=== PATIENT | female | born 1950 | race Caucasian/White ===

== ENCOUNTER 2017-10-24 18:48 | Emergency (ER) | payer MEDICARE, MEDICAID ==
[~2017-10-24] VITALS: Ht 175.3 cm; Wt 60.4 kg
[~2017-10-24 18:48] MED LIST: ALPR-624 PO; CIPR-230 PO; ESOM40CA PO; ESTR1TAB19; LOPE2CAP PO; METO10TA3 PO; METR500T4 PO; ONDA4TAB12 PO; SUCR1ORA2 PO; TRAM50TA2 PO; ZOF4T PO; ZOLP5TAB8 PO
[2017-10-24 19:38] LABS: HEMATOCRIT 34.9 % (35.0-45.0); HEMOGLOBIN 11.5 g/dl (12.0-16.0); MEAN CORPUSCULAR HEMOGLOBIN 22.8 PG (27.0-31.0); MEAN CORPUSCULAR HGB CONC 32.9 % (33.0-36.5); MEAN CORPUSCULAR VOLUME 69.2 FL (78-98); MEAN PLATELET VOLUME 8.5 FL (7.4-10.4); PLATELET COUNT 293 X10'3 (140-440); RED BLOOD COUNT 5.05 X10'6 (4.20-5.60); RED CELL DISTRIBUTION WIDTH 16.2 % (11.5-14.5); WHITE BLOOD COUNT 8.5 X10'3 (4.5-11.0)
[2017-10-24 19:50] LABS: PROTHROMBIN TIME 10.2 SECONDS (9.0-12.0)
[2017-10-24 19:57] LABS: ALANINE AMINOTRANSFERASE 18 U/L (12-78); ALBUMIN 3.7 G/DL (3.4-5.0); ALKALINE PHOSPHATASE 90 IU/L (46-116); ANION GAP 11 (8-16); ASPARTATE AMINO TRANSFERASE 18 U/L (10-37); BILIRUBIN,TOTAL 0.5 MG/DL (0.1-1.0); BLOOD UREA NITROGEN 6 MG/DL (7-18); BUN/CREATININE RATIO 6.4 (6.6-38.0); CALCIUM 8.5 MG/DL (8.5-10.1); CHLORIDE 101 MMOL/L (99-107); CREATININE 0.94 MG/DL (0.40-0.90); GLUCOSE 104 MG/DL (70-104); LIPASE 83 U/L (73-393); POTASSIUM 3.4 MMOL/L (3.5-5.1); SODIUM 138 MMOL/L (135-145); TOTAL CARBON DIOXIDE 25.8 MMOL/L (24-32); TOTAL PROTEIN 7.3 G/DL (6.4-8.2); eGFR 59 ML/MIN
[2017-10-24 20:05] LABS: ANISOCYTOSIS 1+; PLATELET ESTIMATE NORMAL; POIKILOCYTOSIS 2+; TOTAL CELLS COUNTED 100
[2017-10-24 20:06] LABS: ELLIPTOCYTES FEW; TARGET CELLS 1+; TEAR DROP CELLS FEW
[2017-10-24 20:10] LABS: CLARITY,URINE CLEAR (Clear); COLOR,URINE YELLOW (Yellow); GLUCOSE, URINE NEGATIVE (Neg); KETONES,URINE NEGATIVE (Neg); LEUKOCYTE ESTERASE ,URINE NEGATIVE (Neg); NITRITES, URINE NEGATIVE (Neg); OCCULT BLOOD,URINE NEGATIVE (Neg); PROTEIN,URINE NEGATIVE (Neg); UROBILINOGEN,URINE 0.2 E.U/dL (0.2-1.0)
[2017-10-24 20:15] LABS: UA COLLECTION TYPE CLN CATCH MIDSTREAM
[2017-10-24] MEDS ORDERED: LIDOcaine Viscous 15ml cup PO ONE (21:40)
[2017-10-24] MEDS ORDERED: mag hydrox/Alum hydrox/simeth 30ml oral suspension PO ONE (21:40)
[2017-10-24] MEDS ORDERED: famotidine 20mg tablet PO ONE (22:30)
[2017-10-24] MEDS ORDERED: RANI150T8 PO (22:50)
[2017-10-24] MEDS ORDERED: sucralfate 1gm/10ml UD suspension PO ONE (22:50)
[2017-10-24 23:23] VITALS: BP 129/72
== END 2017-10-24 23:26 | disposition home or self-care (01) ==
LOC: ER 18:49
DX: K29.70 Gastritis, unspecified, without bleeding (principal); K57.90 Diverticulosis of intestine, part unspecified, without perforation or abscess without bleeding; K21.9 Gastro-esophageal reflux disease without esophagitis; Z88.5 Allergy status to narcotic agent; Z88.1 Allergy status to other antibiotic agents
CPT/HCPCS: 36415; 74176; 80053; 81003; 83605; 83690; 84484; 85025; 85610; 99285

== ENCOUNTER 2019-02-03 18:26 | Emergency (ER) | payer MEDICARE, MEDICAID ==
[~2019-02-03] VITALS: Ht 175.3 cm; Wt 57.7 kg
[~2019-02-03 18:26] MED LIST changes: -ESTR1TAB19; +ESTR1TAB19 PO; +METR-159 PO; -METR500T4 PO; +RANI150T8 PO
[2019-02-03 19:08] LABS: BASOPHILS % (AUTO) 0.2 % (0-1); EOSINOPHILS % (AUTO) 0.3 % (0-6); HEMATOCRIT 34.4 % (35.0-45.0); HEMOGLOBIN 11.2 g/dl (12.0-16.0); LYMPHOCYTES # (AUTO) 2.6 X10'3 (1.1-4.8); LYMPHOCYTES % (AUTO) 18.4 % (21-51); MEAN CORPUSCULAR HEMOGLOBIN 22.3 PG (27.0-31.0); MEAN CORPUSCULAR HGB CONC 32.7 g/dL (33.0-36.5); MEAN CORPUSCULAR VOLUME 68.1 FL (78-98); MEAN PLATELET VOLUME 9.3 FL (7.4-10.4); MONOCYTES # (AUTO) 0.5 X10'3 (0-0.9); MONOCYTES % (AUTO) 3.6 % (2-12); NEUTROPHILS % (AUTO) 77.5 % (42-75); PLATELET COUNT 332 X10'3 (140-440); RED BLOOD COUNT 5.05 X10'6 (4.20-5.60); RED CELL DISTRIBUTION WIDTH 14.9 % (11.5-14.5); WHITE BLOOD COUNT 14.3 X10'3 (4.5-11.0)
[2019-02-03 19:16] LABS: ALANINE AMINOTRANSFERASE 18 U/L (12-78); ALBUMIN 3.7 G/DL (3.4-5.0); ALBUMIN/GLOBULIN RATIO 1.1 (1.1-1.5); ALKALINE PHOSPHATASE 102 IU/L (46-116); ANION GAP 11 (8-16); ASPARTATE AMINO TRANSFERASE 13 U/L (10-37); BILIRUBIN,TOTAL 0.9 MG/DL (0.1-1.0); BLOOD UREA NITROGEN 5 MG/DL (7-18); BUN/CREATININE RATIO 5.7 (6.6-38.0); CALCIUM 8.4 MG/DL (8.5-10.1); CHLORIDE 97 MMOL/L (99-107); CREATININE 0.88 MG/DL (0.40-0.90); GLUCOSE 99 MG/DL (70-104); POTASSIUM 3.1 MMOL/L (3.5-5.1); SODIUM 133 MMOL/L (135-145); TOTAL CARBON DIOXIDE 25.4 MMOL/L (24-32); TOTAL PROTEIN 7.1 G/DL (6.4-8.2); eGFR 64 ML/MIN
[2019-02-03 19:20] LABS: CLARITY,URINE CLEAR (Clear); GLUCOSE, URINE NEGATIVE (Neg); KETONES,URINE TRACE mg/dl (Neg); LEUKOCYTE ESTERASE ,URINE NEGATIVE (Neg); NITRITES, URINE POSITIVE (Neg); OCCULT BLOOD,URINE NEGATIVE (Neg); PROTEIN,URINE TRACE mg/dl (Neg)
[2019-02-03 19:24] LABS: COLOR,URINE DARK YELLOW (Yellow); UA COLLECTION TYPE CLN CATCH MIDSTREAM
[2019-02-03 19:27] LABS: RBC,URINE NONE SEEN /HPF (0-2); WBC,URINE 0-4 /HPF (0-4)
[2019-02-03 19:28] LABS: BACTERIA,URINE FEW /HPF (Neg); MUCUS STRANDS NONE SEEN /LPF (Neg); SQUAMOUS EPITHELIAL CELL,UR FEW /LPF (FEW)
[2019-02-03 20:32] LABS: MICROCYTOSIS 2+; PLATELET ESTIMATE NORMAL
[2019-02-03 20:33] LABS: ELLIPTOCYTES 1+; LIPASE 57 U/L (73-393); TARGET CELLS FEW
[2019-02-03] MEDS ORDERED: sucralfate 1gm/10ml UD suspension PO STA (20:47)
[2019-02-03] MEDS ORDERED: LIDOcaine Viscous 15ml cup PO ONE (20:50)
[2019-02-03] MEDS ORDERED: mag hydrox/Alum hydrox/simeth 30ml oral suspension PO ONE (20:50)
[2019-02-03] MEDS ORDERED: SUCR1TAB34 PO (21:34)
[2019-02-03] MEDS ORDERED: CEPH500C5 PO (21:35)
[2019-02-03 21:46] VITALS: BP 180/82
== END 2019-02-03 21:51 | disposition home or self-care (01) ==
LOC: ER 18:28
DX: R10.13 Epigastric pain (principal); K21.9 Gastro-esophageal reflux disease without esophagitis; Z90.49 Acquired absence of other specified parts of digestive tract; Z90.710 Acquired absence of both cervix and uterus; Z88.2 Allergy status to sulfonamides; Z88.1 Allergy status to other antibiotic agents; Z88.5 Allergy status to narcotic agent; Z79.899 Other long term (current) drug therapy
CPT/HCPCS: 36415; 80053; 81001; 83690; 85025; 85610; 87088; 99283; 99284

== ENCOUNTER 2019-03-16 11:26 | Emergency (ER) | payer MEDICARE, MEDICAID ==
[~2019-03-16] VITALS: Ht 175.3 cm; Wt 55.5 kg
[~2019-03-16 11:26] MED LIST changes: +CEPH500C5 PO; +SUCR1TAB34 PO
[2019-03-16 11:49] LABS: CLARITY,URINE CLOUDY (Clear); COLOR,URINE YELLOW (Yellow); GLUCOSE, URINE NEGATIVE (Neg); KETONES,URINE TRACE mg/dl (Neg); LEUKOCYTE ESTERASE ,URINE NEGATIVE (Neg); NITRITES, URINE NEGATIVE (Neg); OCCULT BLOOD,URINE NEGATIVE (Neg); PH,URINE 6.5 (4.8-8.0); PROTEIN,URINE 100 mg/dl (Neg); UROBILINOGEN,URINE 0.2 E.U/dL (0.2-1.0)
[2019-03-16 11:52] LABS: UA COLLECTION TYPE CLN CATCH MIDSTREAM
[2019-03-16 11:57] LABS: SQUAMOUS EPITHELIAL CELL,UR MANY /LPF (FEW)
[2019-03-16 11:58] LABS: MUCUS STRANDS MODERATE /LPF (Neg)
[2019-03-16 12:00] LABS: BACTERIA,URINE 1+ /HPF (Neg); RBC,URINE 0-2 /HPF (0-2); WBC,URINE 0-4 /HPF (0-4)
--- NOTE | 2019-03-16 12:01 | NUR ---
patient here because she called her GI doc DR SHEA and c/o abdominal pain and his office told her to go to the er patient had CT scan oral/iv contrast at [facility] yesterday pain location is epigastric: "sharp/burning 9.5/10", not worse with deep breath
[2019-03-16 12:02] LABS: HEMOGLOBIN 11.7 g/dl (12.0-16.0)
[2019-03-16 12:05] LABS: HEMATOCRIT 36.7 % (35.0-45.0); MEAN CORPUSCULAR HEMOGLOBIN 22.1 PG (27.0-31.0); MEAN CORPUSCULAR HGB CONC 31.8 g/dL (33.0-36.5); MEAN CORPUSCULAR VOLUME 69.5 FL (78-98); MEAN PLATELET VOLUME 8.8 FL (7.4-10.4); PLATELET COUNT 408 X10'3 (140-440); RED BLOOD COUNT 5.27 X10'6 (4.20-5.60); RED CELL DISTRIBUTION WIDTH 15.9 % (11.5-14.5); WHITE BLOOD COUNT 9.9 X10'3 (4.5-11.0)
--- NOTE | 2019-03-16 12:06 | NUR ---
patient saw raina mehta on Wednesday for abdominal pain and was started on Cefdinir 300mg daily on 03/14/19 for suspected abdominal infection and ct scan ordered patient called dr lutz's office today c/o abdominal pain and they told her to come in: pt takes the folllowing daily: Nexium 40 mg bid Estradiol 1 mg daily Dicyclonie 10 mg tid
--- NOTE | 2019-03-16 12:11 | NUR ---
note : patient did not take the Carafate prescribed here in January 2019 because "I thougth it was Sulfa"
[2019-03-16 12:14] LABS: ALANINE AMINOTRANSFERASE 21 U/L (12-78); ALBUMIN 3.9 G/DL (3.4-5.0); ALBUMIN/GLOBULIN RATIO 1.1 (1.1-1.5); ALKALINE PHOSPHATASE 95 IU/L (46-116); ANION GAP 11 (8-16); ASPARTATE AMINO TRANSFERASE 10 U/L (10-37); BILIRUBIN,TOTAL 0.4 MG/DL (0.1-1.0); BLOOD UREA NITROGEN 9 MG/DL (7-18); BUN/CREATININE RATIO 10.6 (6.6-38.0); CALCIUM 9.1 MG/DL (8.5-10.1); CHLORIDE 104 MMOL/L (99-107); CREATININE 0.85 MG/DL (0.40-0.90); GLUCOSE 111 MG/DL (70-104); LIPASE 115 U/L (73-393); POTASSIUM 4.1 MMOL/L (3.5-5.1); SODIUM 140 MMOL/L (135-145); TOTAL CARBON DIOXIDE 24.8 MMOL/L (24-32); TOTAL PROTEIN 7.5 G/DL (6.4-8.2); eGFR 66 ML/MIN
[2019-03-16 12:17] LABS: TOTAL CELLS COUNTED 100
--- NOTE | 2019-03-16 12:19 | NUR ---
discussed plan of care with dr bingham; asked lamar quintero to obtain ct scan records from [facility]
[2019-03-16 12:23] LABS: ANISOCYTOSIS 2+; PLATELET ESTIMATE NORMAL
[2019-03-16 12:25] LABS: ELLIPTOCYTES FEW; HYPOCHROMASIA 2+; SCHISTOCYTES FEW
[2019-03-16] MEDS ORDERED: LORazepam 2 mg/ml vial IV ONE (12:35)
[2019-03-16] MEDS ORDERED: normal saline 1000ML IV soln IVB ONE (12:35)
[2019-03-16] MEDS ORDERED: ondansetron/PF 4mg/2ml inj IV ONE (12:35)
[2019-03-16] MEDS ORDERED: pantoprazole 40 MG vial IV ONE (12:35)
[2019-03-16] MEDS ORDERED: LIDOcaine Viscous 15ml cup PO ONE (12:35)
[2019-03-16] MEDS ORDERED: mag hydrox/Alum hydrox/simeth 30ml oral suspension PO ONE (12:35)
[2019-03-16 12:50] VITALS: BP 136/71
[2019-03-16] MEDS ORDERED: famotidine/PF 10 mg/ml inj IV ONE (13:05)
[2019-03-16] MEDS ORDERED: SUCR1TAB34 PO (13:08)
[2019-03-16] MEDS ORDERED: CETI-102 PO (13:14)
[2019-03-16] MEDS ORDERED: CEFD300C3 PO (13:14)
[2019-03-16] MEDS ORDERED: ALBU18HF2 INH (13:14)
[2019-03-16] MEDS ORDERED: RANI150T8 PO (13:14)
[2019-03-16] MEDS ORDERED: DICY10CA14 PO (13:14)
[2019-03-16] MEDS ORDERED: MELA1TAB21 PO (13:14)
[2019-03-16] MEDS ORDERED: MELA5TAB14 PO (13:16)
== END 2019-03-16 13:33 | disposition home or self-care (01) ==
LOC: ER 11:27
DX: R10.13 Epigastric pain (principal); K21.9 Gastro-esophageal reflux disease without esophagitis; F41.9 Anxiety disorder, unspecified; Z90.49 Acquired absence of other specified parts of digestive tract; Z90.710 Acquired absence of both cervix and uterus; Z98.890 Other specified postprocedural states; Z88.2 Allergy status to sulfonamides; Z88.1 Allergy status to other antibiotic agents; Z88.5 Allergy status to narcotic agent; Z79.2 Long term (current) use of antibiotics; Z79.899 Other long term (current) drug therapy
CPT/HCPCS: 36415; 80053; 81001; 83690; 85025; 85610; 96374; 96375; 99284; J2060; J2405; J3490; J7030; J7040

== ENCOUNTER 2019-03-20 12:42 | Emergency (ER) | payer MEDICARE, MEDICAID ==
[~2019-03-20] VITALS: Ht 172.7 cm; Wt 55.0 kg
[~2019-03-20 12:42] MED LIST changes: +ALBU18HF2 INH; +CEFD300C3 PO; +CETI-102 PO; +DICY10CA14 PO; +MELA1TAB21 PO; +MELA5TAB14 PO
[2019-03-20] MEDS ORDERED: famotidine 20mg tablet PO ONE (12:55)
[2019-03-20] MEDS ORDERED: LIDOcaine Viscous 15ml cup PO ONE (12:55)
[2019-03-20] MEDS ORDERED: normal saline 1000ML IV soln IVB ONE (12:55)
[2019-03-20] MEDS ORDERED: LORazepam 2 mg/ml vial IV ONE (12:55)
[2019-03-20] MEDS ORDERED: haloperidol lactate 5mg/ml inj IM ONE (12:55)
[2019-03-20] MEDS ORDERED: mag hydrox/Alum hydrox/simeth 30ml oral suspension PO ONE (12:55)
[2019-03-20 13:20] LABS: MEAN CORPUSCULAR HEMOGLOBIN 22.2 PG (27.0-31.0); WHITE BLOOD COUNT 8.4 X10'3 (4.5-11.0)
[2019-03-20 13:22] LABS: HEMATOCRIT 33.1 % (35.0-45.0); HEMOGLOBIN 10.6 g/dl (12.0-16.0); MEAN CORPUSCULAR HGB CONC 31.9 g/dL (33.0-36.5); MEAN CORPUSCULAR VOLUME 69.4 FL (78-98); MEAN PLATELET VOLUME 9.1 FL (7.4-10.4); PLATELET COUNT 332 X10'3 (140-440); RED BLOOD COUNT 4.77 X10'6 (4.20-5.60); RED CELL DISTRIBUTION WIDTH 16.5 % (11.5-14.5)
[2019-03-20 13:32] LABS: ALANINE AMINOTRANSFERASE 21 U/L (12-78); ALBUMIN 3.5 G/DL (3.4-5.0); ALBUMIN/GLOBULIN RATIO 1.1 (1.1-1.5); ALKALINE PHOSPHATASE 76 IU/L (46-116); ANION GAP 12 (8-16); ASPARTATE AMINO TRANSFERASE 11 U/L (10-37); BILIRUBIN,TOTAL 0.4 MG/DL (0.1-1.0); BLOOD UREA NITROGEN 10 MG/DL (7-18); BUN/CREATININE RATIO 12.8 (6.6-38.0); CALCIUM 8.8 MG/DL (8.5-10.1); CHLORIDE 106 MMOL/L (99-107); CREATININE 0.78 MG/DL (0.40-0.90); GLUCOSE 129 MG/DL (70-104); LIPASE 102 U/L (73-393); POTASSIUM 3.7 MMOL/L (3.5-5.1); SODIUM 141 MMOL/L (135-145); TOTAL PROTEIN 6.7 G/DL (6.4-8.2); eGFR 73 ML/MIN
[2019-03-20 13:54] LABS: TOTAL CELLS COUNTED 100
[2019-03-20 13:55] LABS: ANISOCYTOSIS 1+; HYPOCHROMASIA 1+; MICROCYTOSIS 2+; PLATELET ESTIMATE NORMAL
[2019-03-20 13:56] LABS: ELLIPTOCYTES 1+; POIKILOCYTOSIS 1+; POLYCHROMASIA FEW; SCHISTOCYTES FEW; TARGET CELLS FEW
[2019-03-20 13:57] LABS: TEAR DROP CELLS 1+
[2019-03-20 14:43] VITALS: BP 143/83
== END 2019-03-20 14:45 | disposition home or self-care (01) ==
LOC: ER 12:42
DX: R10.13 Epigastric pain (principal); K21.9 Gastro-esophageal reflux disease without esophagitis; F41.9 Anxiety disorder, unspecified; Z90.49 Acquired absence of other specified parts of digestive tract; Z90.710 Acquired absence of both cervix and uterus; Z98.890 Other specified postprocedural states; Z88.2 Allergy status to sulfonamides; Z88.1 Allergy status to other antibiotic agents; Z88.5 Allergy status to narcotic agent; Z79.2 Long term (current) use of antibiotics; Z79.899 Other long term (current) drug therapy
CPT/HCPCS: 36415; 80053; 83690; 85025; 93005; 96372; 96374; 99284; J1630; J2060; J7030

== ENCOUNTER 2019-04-17 10:34 | Emergency (ER) | payer MEDICARE, MEDICAID ==
[~2019-04-17] VITALS: Ht 175.3 cm; Wt 53.0 kg
[~2019-04-17 10:34] MED LIST changes: -ALPR-624 PO; -CEPH500C5 PO; -CIPR-230 PO; -LOPE2CAP PO; -MELA1TAB21 PO; -METO10TA3 PO; -METR-159 PO; -ONDA4TAB12 PO; -SUCR1ORA2 PO; -SUCR1TAB34 PO; -TRAM50TA2 PO; -ZOF4T PO; -ZOLP5TAB8 PO
[2019-04-17 11:20] LABS: PARTIAL THROMBOPLASTIN TIME 24 SECONDS (22-32)
[2019-04-17] MEDS ORDERED: LIDOcaine Viscous 15ml cup PO ONE (11:20)
[2019-04-17] MEDS ORDERED: famotidine 20mg tablet PO ONE (11:20)
[2019-04-17] MEDS ORDERED: mag hydrox/Alum hydrox/simeth 30ml oral suspension PO ONE (11:20)
[2019-04-17 11:21] LABS: ALANINE AMINOTRANSFERASE 22 U/L (12-78); ALBUMIN 3.7 G/DL (3.4-5.0); ALBUMIN/GLOBULIN RATIO 1.1 (1.1-1.5); ALKALINE PHOSPHATASE 81 IU/L (46-116); ANION GAP 10 (8-16); ASPARTATE AMINO TRANSFERASE 15 U/L (10-37); BASOPHILS % (AUTO) 0.6 % (0-1); BILIRUBIN,TOTAL 0.6 MG/DL (0.1-1.0); BLOOD UREA NITROGEN 7 MG/DL (7-18); BUN/CREATININE RATIO 6.9 (6.6-38.0); CALCIUM 8.8 MG/DL (8.5-10.1); CHLORIDE 105 MMOL/L (99-107); CREATININE 1.01 MG/DL (0.40-0.90); EOSINOPHILS % (AUTO) 0.2 % (0-6); GLUCOSE 142 MG/DL (70-104); HEMATOCRIT 37.1 % (35.0-45.0); HEMOGLOBIN 11.9 g/dl (12.0-16.0); LYMPHOCYTES # (AUTO) 2.4 X10'3 (1.1-4.8); LYMPHOCYTES % (AUTO) 29.3 % (21-51); MEAN CORPUSCULAR HEMOGLOBIN 22.5 PG (27.0-31.0); MEAN CORPUSCULAR HGB CONC 32.2 g/dL (33.0-36.5); MEAN CORPUSCULAR VOLUME 69.8 FL (78-98); MEAN PLATELET VOLUME 8.7 FL (7.4-10.4); MONOCYTES # (AUTO) 0.3 X10'3 (0-0.9); MONOCYTES % (AUTO) 3.9 % (2-12); NEUTROPHILS # (AUTO) 5.5 X10'3 (1.8-7.7); PLATELET COUNT 403 X10'3 (140-440); POTASSIUM 3.1 MMOL/L (3.5-5.1); RED BLOOD COUNT 5.31 X10'6 (4.20-5.60); RED CELL DISTRIBUTION WIDTH 15.5 % (11.5-14.5); SODIUM 141 MMOL/L (135-145); TOTAL CARBON DIOXIDE 25.7 MMOL/L (24-32); TOTAL PROTEIN 7.2 G/DL (6.4-8.2); WHITE BLOOD COUNT 8.3 X10'3 (4.5-11.0); eGFR 54 ML/MIN
[2019-04-17 11:58] LABS: LIPASE 80 U/L (73-393)
[2019-04-17] MEDS ORDERED: morphine 4 MG/ML inj SYRINge IV ONE ×4 (12:30→15:20)
[2019-04-17 13:22] LABS: LARGE PLATELETS FEW; MICROCYTOSIS 2+; PLATELET ESTIMATE NORMAL
[2019-04-17 13:23] LABS: TARGET CELLS 1+
--- NOTE | 2019-04-17 14:41 | NUR ---
Pt tearful. States her pain is 10/10 at this time.
[2019-04-17] MEDS ORDERED: SUCR1TAB34 PO (15:07)
[2019-04-17 15:26] VITALS: BP 152/86
== END 2019-04-17 15:28 | disposition home or self-care (01) ==
LOC: ER 10:34
DX: R10.13 Epigastric pain (principal); R07.89 Other chest pain; K21.9 Gastro-esophageal reflux disease without esophagitis; F41.9 Anxiety disorder, unspecified; Z90.49 Acquired absence of other specified parts of digestive tract; Z90.710 Acquired absence of both cervix and uterus; Z98.890 Other specified postprocedural states; Z88.2 Allergy status to sulfonamides; Z88.1 Allergy status to other antibiotic agents; Z88.5 Allergy status to narcotic agent; Z79.2 Long term (current) use of antibiotics; Z79.899 Other long term (current) drug therapy
CPT/HCPCS: 36415; 71045; 74174; 80053; 83690; 84484; 85025; 85610; 85730; 93005; 96374; 96376; 99284; J2270

== ENCOUNTER 2021-09-01 11:24 | Emergency (ER) | payer MEDICARE, MEDICAID ==
[~2021-09-01] VITALS: Ht 172.7 cm; Wt 58.2 kg
[~2021-09-01 11:24] MED LIST changes: -CETI-102 PO; +CETI-90 PO; +SUCR1TAB34 PO
[2021-09-01 11:40] VITALS: BP 129/65
[2021-09-01] MEDS ORDERED: ketorolac trometh inj. 60 MG/2 ML VIAL IM ONE (22:10)
[2021-09-02 01:05] LABS: BASOPHILS # (AUTO) 0.1 X10'3 (0-0.2); BASOPHILS % (AUTO) 0.6 % (0-1); EOSINOPHILS % (AUTO) 0 % (0-6); HEMATOCRIT 32.1 % (35.0-45.0); HEMOGLOBIN 10.6 g/dl (12.0-16.0); LYMPHOCYTES # (AUTO) 1.3 X10'3 (1.1-4.8); LYMPHOCYTES % (AUTO) 8.1 % (21-51); MEAN CORPUSCULAR HEMOGLOBIN 22.9 PG (27.0-31.0); MEAN CORPUSCULAR HGB CONC 32.9 g/dL (33.0-36.5); MEAN CORPUSCULAR VOLUME 69.5 FL (78-98); MEAN PLATELET VOLUME 9.1 FL (7.4-10.4); MONOCYTES # (AUTO) 0.9 X10'3 (0-0.9); MONOCYTES % (AUTO) 5.7 % (2-12); NEUTROPHILS # (AUTO) 14.1 X10'3 (1.8-7.7); NEUTROPHILS % (AUTO) 85.6 % (42-75); PLATELET COUNT 310 X10'3 (140-440); RED BLOOD COUNT 4.62 X10'6 (4.20-5.60); RED CELL DISTRIBUTION WIDTH 14.9 % (11.5-14.5); WHITE BLOOD COUNT 16.4 X10'3 (4.5-11.0)
[2021-09-02 01:14] LABS: ALBUMIN 3.4 G/DL (3.4-5.0); ANION GAP 9 (8-16); BLOOD UREA NITROGEN 18 MG/DL (7-18); BUN/CREATININE RATIO 19.8 (6.6-38.0); CALCIUM 9.2 MG/DL (8.5-10.1); CHLORIDE 98 MMOL/L (99-107); CREATININE 0.91 MG/DL (0.40-0.90); GLUCOSE 131 MG/DL (70-104); POTASSIUM 4.1 MMOL/L (3.5-5.1); SODIUM 133 MMOL/L (135-145); TOTAL CARBON DIOXIDE 25.7 MMOL/L (24-32); eGFR 61 ML/MIN
[2021-09-02] MEDS ORDERED: iohexol 300mg/ml 100ml inj. ONE (01:38)
[2021-09-02 02:13] LABS: PLATELET ESTIMATE NORMAL
[2021-09-02 02:14] LABS: ELLIPTOCYTES FEW; MICROCYTOSIS 2+; TARGET CELLS FEW; TEAR DROP CELLS FEW
[2021-09-02 06:35] LABS: CLARITY,URINE CLEAR (Clear); COLOR,URINE YELLOW (Yellow); GLUCOSE, URINE NEGATIVE (Neg); KETONES,URINE 15 mg/dl (Neg); LEUKOCYTE ESTERASE ,URINE NEGATIVE (Neg); NITRITES, URINE NEGATIVE (Neg); OCCULT BLOOD,URINE SMALL (Neg); PH,URINE 5.5 (4.8-8.0); PROTEIN,URINE 30 mg/dl (Neg); UROBILINOGEN,URINE 0.2 E.U/dL (0.2-1.0)
[2021-09-02 06:36] LABS: UA COLLECTION TYPE CLN CATCH MIDSTREAM
[2021-09-02 06:39] LABS: BACTERIA,URINE NONE SEEN /HPF (Neg); RBC,URINE 0-2 /HPF (0-2); SQUAMOUS EPITHELIAL CELL,UR FEW /LPF (FEW); WBC,URINE 0-4 /HPF (0-4)
[2021-09-02] MEDS ORDERED: HYDR-3965 PO (06:49)
== END 2021-09-02 08:32 | disposition home or self-care (01) ==
LOC: ER 11:25
DX: M25.551 Pain in right hip (principal); K21.9 Gastro-esophageal reflux disease without esophagitis; Z87.19 Personal history of other diseases of the digestive system; Z90.49 Acquired absence of other specified parts of digestive tract; Z90.710 Acquired absence of both cervix and uterus; Z79.899 Other long term (current) drug therapy; Z88.2 Allergy status to sulfonamides; Z88.1 Allergy status to other antibiotic agents; Z88.5 Allergy status to narcotic agent
CPT/HCPCS: 36415; 73502; 74177; 80048; 81001; 85008; 85025; 96372; 99285; J1885; Q9967

== ENCOUNTER 2022-04-24 06:41 | Day surgery (SDC) | payer OTHER ==
[~2022-04-24] VITALS: Ht 172.7 cm; Wt 47.2 kg
[2022-04-24] VITALS (7 sets, daily range): BP systolic 92–98; BP diastolic 46–65
[2022-04-24] MEDS ORDERED: normal saline 1000ml 1,000 ML IV SCH (07:00)
[2022-04-24] MEDS ORDERED: OXYC10TA57 PO (07:11)
[2022-04-24] MEDS ORDERED: HYDR0.5S2 IV (07:14)
[2022-04-24] MEDS ORDERED: Remeron PO (07:14)
[2022-04-24] MEDS ORDERED: CEFA2FRO (07:16)
[2022-04-24] MEDS ORDERED: DOCU100C40 PO (07:16)
[2022-04-24] MEDS ORDERED: DULO60CA65 PO (07:17)
[2022-04-24] MEDS ORDERED: CYCL5TAB PO (07:18)
[2022-04-24] MEDS ORDERED: PANT-47 PO (07:21)
[2022-04-24] MEDS ORDERED: LISI20TA28 PO (07:21)
[2022-04-24] MEDS ORDERED: LORA10TA7 PO (07:21)
[2022-04-24] MEDS ORDERED: GABA100C PO (07:21)
[2022-04-24] MEDS ORDERED: SENN8.6T19 PO (07:23)
[2022-04-24] MEDS ORDERED: AMLO10TA PO (07:23)
[2022-04-24] MEDS ORDERED: ENOX40SY7 SUBCUT (07:25)
[2022-04-24 08:32] LABS: BASOPHILS % (AUTO) 0.8 % (0-1); EOSINOPHILS # (AUTO) 0.4 X10'3 (0-0.9); EOSINOPHILS % (AUTO) 6.4 % (0-6); HEMOGLOBIN 8.6 g/dl (12.0-16.0); LYMPHOCYTES # (AUTO) 2.2 X10'3 (1.1-4.8); LYMPHOCYTES % (AUTO) 37.5 % (21-51); MEAN CORPUSCULAR HEMOGLOBIN 21.8 PG (27.0-31.0); MEAN CORPUSCULAR VOLUME 68.3 FL (78-98); MEAN PLATELET VOLUME 8.6 FL (7.4-10.4); MONOCYTES # (AUTO) 0.6 X10'3 (0-0.9); MONOCYTES % (AUTO) 9.9 % (2-12); NEUTROPHILS # (AUTO) 2.6 X10'3 (1.8-7.7); NEUTROPHILS % (AUTO) 45.4 % (42-75); PLATELET COUNT 376 X10'3 (140-440); RED BLOOD COUNT 3.96 X10'6 (4.20-5.60); RED CELL DISTRIBUTION WIDTH 15.4 % (11.5-14.5); WHITE BLOOD COUNT 5.8 X10'3 (4.5-11.0)
[2022-04-24] MEDS ORDERED: LIDOcaine 1%/PF 5ML 10 MG/ML VIAL ONE ×2 (08:44)
[2022-04-24] MEDS ORDERED: fentaNYL/PF 50MCG/1 ML 2ML syringe ONE (09:06)
[2022-04-24] MEDS ORDERED: midazolam 1 mg/ML 2ml injection ONE (09:18)
[2022-04-24 09:22] LABS: PLATELET ESTIMATE NORMAL
[2022-04-24 09:23] LABS: ANISOCYTOSIS 1+; HYPOCHROMASIA 2+; MICROCYTOSIS 2+; POLYCHROMASIA 1+; TEAR DROP CELLS 1+
[2022-04-24 09:24] LABS: ELLIPTOCYTES 1+; SCHISTOCYTES FEW; TARGET CELLS FEW
== END 2022-04-24 11:08 | disposition short-term general hospital (02) ==
LOC: SSTAY O 06:41
PROVIDERS: ATTEND Radiology Vascular & Interventional Radiology
DX: M87.851 Other osteonecrosis, right femur (principal); Z79.01 Long term (current) use of anticoagulants; Z88.2 Allergy status to sulfonamides; Z88.8 Allergy status to other drugs, medicaments and biological substances; Z88.6 Allergy status to analgesic agent; Z79.899 Other long term (current) drug therapy; Z98.890 Other specified postprocedural states; Z90.49 Acquired absence of other specified parts of digestive tract; Z90.710 Acquired absence of both cervix and uterus; F17.210 Nicotine dependence, cigarettes, uncomplicated; Z72.89 Other problems related to lifestyle
CPT/HCPCS: 20610; 36415; 77002; 85025; 85610; 87070; J2250; J3010; J3490; J7030; 10160; 85008